=== PATIENT | male | born 1995 | race American Indian/Alaskan Native ===

== ENCOUNTER 2018-09-21 02:39 | Emergency (ER) | payer OTHER ==
[2018-09-21 02:48] VITALS: BP 116/67
[2018-09-21 03:24] LABS: Bacteria,Urine 1+ /HPF (Negative); Bilirubin,Urine NEG (Negative); Blood,Urine NEG (Negative); Color,Urine Amber (Yellow); Mucus,Urine FEW /HPF; Sperm,Urine FEW /HPF (NP)
[2018-09-21] MEDS ORDERED: XYLOCAINE 1% MPF 5 mL INFILTRATI ONE (04:46)
[2018-09-21] MEDS ORDERED: ROCEPHIN IM ONE (04:46)
[2018-09-21] MEDS ORDERED: ZITHROMAX PO ONE ×2 (04:46→05:12)
[2018-09-21] MEDS ORDERED: ZITHROMAX ONE (04:52)
--- NOTE | 2018-09-21 04:52 | Emergency Department Report ---
ED Male HPI - General Chief complaint: Urogenital-Male Stated complaint: GENITAL PAIN Time Seen by Provider: 09/21/18 03:43 Source: patient Mode of arrival: Ambulatory Limitations: No Limitations - History of Present Illness Initial comments: pt is a 22 y/o aam who presents for dysuria frequency urgency x 3 days states last contact was 4 days ago there is no fever no chills no n/v no penile discharge , Complaint: penile discharge, dysuria Onset/Timin -: days(s) Location: penis Radiation: none Severity: moderate Severity scale (0 -10): 4 Quality: burning Consistency: intermittent Improves with: none Worsens with: urination denies: discharge, swelling, mass, rash, urinary retention, blood in urine, dysuria, fever, nausea/vomiting, incontinence, other - Related Data Sexually active: Yes Previous Rx's Medication Instructions Recorded Last Taken Type Doxycycline Monohydrate 100 mg PO BID #30 capsule 09/21/18 Unknown Rx [Doxycycline Monohydrate CAP] Allergies Allergy/AdvReac Type Severity Reaction Status Date / Time No Known Allergies Allergy Unverified 09/21/18 02:50 ED Review of Systems ROS: Stated complaint: GENITAL PAIN Other details as noted in HPI Constitutional: denies: chills, fever Eyes: denies: eye pain, eye discharge, vision change ENT: denies: ear pain, throat pain Respiratory: denies: cough, shortness of breath, wheezing Cardiovascular: denies: chest pain, palpitations Endocrine: no symptoms reported Gastrointestinal: denies: abdominal pain, nausea, vomiting, diarrhea, constipation, melena Genitourinary: urgency, dysuria Musculoskeletal: back pain. denies: joint swelling, arthralgia, myalgia Skin: denies: rash, lesions Neurological: denies: headache, weakness, paresthesias Psychiatric: denies: anxiety, depression Hematological/Lymphatic: denies: easy bleeding, easy bruising ED Past Medical Hx - Past Medical History Previous Medical History?: No - Surgical History Past Surgical History?: No - Social History Smoking Status: Former Smoker Substance Use Type: Alcohol - Medications Home Medications: Home Medications Medication Instructions Recorded Confirmed Last Taken Type Doxycycline Monohydrate 100 mg PO BID #30 capsule 09/21/18 Unknown Rx [Doxycycline Monohydrate CAP] ED Physical Exam - General Limitations: No Limitations, Altered Mental Status General appearance: alert, in no apparent distress - Head Head exam: Present: atraumatic, normocephalic - Eye Eye exam: Present: normal appearance, PERRL, EOMI Pupils: Present: normal accommodation - ENT ENT exam: Present: normal orophraynx, mucous membranes moist - Neck Neck exam: Present: normal inspection, full ROM. Absent: tenderness, meningismus, lymphadenopathy, thyromegaly - Respiratory Respiratory exam: Present: normal lung sounds bilaterally. Absent: respiratory distress, wheezes, rhonchi, chest wall tenderness - Cardiovascular Cardiovascular Exam: Present: regular rate, normal rhythm. Absent: systolic murmur, diastolic murmur, rubs, gallop - GI/Abdominal GI/Abdominal exam: Present: hypoactive bowel sounds, organomegaly. Absent: distended, tenderness - Rectal Rectal exam: Present: deferred - Extremities Exam Extremities exam: Present: normal inspection - Back Exam Back exam: Present: normal inspection, rash noted. Absent: full ROM, tenderness, CVA tenderness (R), CVA tenderness (L), muscle spasm, paraspinal tenderness - Neurological Exam Neurological exam: Present: alert, oriented X3 - Psychiatric Psychiatric exam: Present: normal affect, normal mood - Skin Skin exam: Present: warm, dry, intact, normal color. Absent: rash ED Course Vital Signs 09/21/18 02:47 Temperature 98.7 F Pulse Rate 78 Respiratory 18 Rate Blood Pressure 116/67 [Left] O2 Sat by Pulse 100 Oximetry Critical care attestation.: If time is entered above; I have spent that time in minutes in the direct care of this critically ill patient, excluding procedure time. ED Disposition Clinical Impression: Dysuria UTI (urinary tract infection) Qualifiers: Urinary tract infection type: acute cystitis Hematuria presence: without hematuria Qualified Code(s): N30.00 - Acute cystitis without hematuria Disposition: - TO HOME OR SELFCARE Is pt being admited?: No Does the pt Need Aspirin: No Condition: Stable Instructions: Dysuria (ED), Urinary Tract Infection in Men (ED) Prescriptions: Doxycycline Monohydrate [Doxycycline Monohydrate CAP] 100 mg PO BID #30 capsule Referrals: [facility] [Outside] - 3-5 Days Forms: Work/School Release Form(ED) Time of Disposition: 05:03
== END 2018-09-21 05:25 | disposition home or self-care (01) ==
LOC: ED 02:39
DX: N30.00 Acute cystitis without hematuria (principal); Z87.891 Personal history of nicotine dependence
CPT/HCPCS: 81001; 96372; 99283; J0696

== ENCOUNTER 2020-02-04 16:58 | Emergency (ER) | payer OTHER ==
--- NOTE | 2020-02-04 18:46 | Emergency Department Report ---
- General Chief Complaint: Upper Respiratory Infection Stated Complaint: CHEST PAIN, HURTS TO BREATHE Time Seen by Provider: 02/04/20 18:42 Source: patient Mode of arrival: Ambulatory Limitations: No Limitations - History of Present Illness Initial Comments: 24-year-old F [place] male presents emerged department complaining of chest pain and shortness of breath for the past few days after discovering he was Covid positive today. Ports no hemoptysis no hematemesis no hematochezia, no fever, chills or sweats but symptoms he feels has been worsening. MD Complaint: cough Severity: mild Quality: dull Consistency: constant Worsens With: nothing Context: sick contacts Associated Symptoms: chills, rhinorrhea, cough. denies: shortness of breath, abdominal pain, vomiting, right sweats, weight loss, epistaxis - Related Data Previous Rx's Medication Instructions Recorded Last Taken Type Doxycycline Monohydrate 100 mg PO BID #30 capsule 09/21/18 Unknown Rx [Doxycycline Monohydrate CAP] Albuterol Mdi (or & Nicu Only) 1 puff IH Q4-6H PRN #1 inha 02/04/20 Unknown Rx [ProAir HFA Inhaler] Benzonatate [Tessalon Perles] 100 mg PO Q8HR #20 capsule 02/04/20 Unknown Rx predniSONE [Deltasone] 50 mg PO QDAY #5 tab 02/04/20 Unknown Rx Allergies Allergy/AdvReac Type Severity Reaction Status Date / Time No Known Allergies Allergy Unverified 09/21/18 02:50 ED Review of Systems ROS: Stated complaint: CHEST PAIN, HURTS TO BREATHE Other details as noted in HPI Comment: All other systems reviewed and negative ED Past Medical Hx - Past Medical History Previous Medical History?: No - Surgical History Past Surgical History?: No - Social History Smoking Status: Never Smoker Substance Use Type: None - Medications Home Medications: Home Medications Medication Instructions Recorded Confirmed Last Taken Type Doxycycline Monohydrate 100 mg PO BID #30 capsule 09/21/18 Unknown Rx [Doxycycline Monohydrate CAP] Albuterol Mdi (or & Nicu Only) 1 puff IH Q4-6H PRN #1 inha 02/04/20 Unknown Rx [ProAir HFA Inhaler] Benzonatate [Tessalon Perles] 100 mg PO Q8HR #20 capsule 02/04/20 Unknown Rx predniSONE [Deltasone] 50 mg PO QDAY #5 tab 02/04/20 Unknown Rx ED Physical Exam - General Limitations: No Limitations General appearance: alert, in no apparent distress - Head Head exam: Present: atraumatic, normocephalic - Eye Eye exam: Present: normal appearance, PERRL Pupils: Present: normal accommodation - ENT ENT exam: Present: normal exam, mucous membranes moist - Neck Neck exam: Present: normal inspection - Respiratory Respiratory exam: Present: normal lung sounds bilaterally. Absent: respiratory distress, wheezes, rales, chest wall tenderness, accessory muscle use, decreased breath sounds, prolonged expiratory - Cardiovascular Cardiovascular Exam: Present: regular rate, normal rhythm. Absent: systolic murmur, diastolic murmur, rubs, gallop - GI/Abdominal GI/Abdominal exam: Present: soft, normal bowel sounds - Rectal Rectal exam: Present: deferred - Extremities Exam Extremities exam: Present: normal inspection - Back Exam Back exam: Present: normal inspection - Neurological Exam Neurological exam: Present: alert, oriented X3 - Psychiatric Psychiatric exam: Present: normal affect, normal mood - Skin Skin exam: Present: warm, dry, intact, normal color. Absent: rash ED Course Vital Signs 02/04/20 17:31 Temperature 98.4 F Pulse Rate 68 Respiratory 20 Rate Blood Pressure 133/69 [Right] O2 Sat by Pulse 100 Oximetry ED Medical Decision Making - Radiology Data Radiology results: report reviewed Print Report Referring Physician:YAMIL WESTPatient Name:RADHA FLORPatient ID:[id number] of :[id number]:MaleAccession:[id number] Date:[id number] Status:Finalized Findings [address] [address] XRay Report Signed Patient: RADHA FLOR JR MR#: [id number] : 1995 Acct:[id number] Age/Sex: 24 / M ADM Date: 02/04/20 Loc: ED Attending Dr: Ordering Physician: OMAR LEMUS Date of Service: 02/04/20 Procedure(s): XR chest routine 2V Accession Number(s): [id number] cc: OMAR LEMUS Fluoro Time In Minutes: CHEST 2 VIEWS INDICATION: chest pain and covid+. COMPARISON: None FINDINGS: Support devices: None. Heart: Within normal limits. Lungs: No acute air space or interstitial disease. Pleura: No significant pleural effusion. No pneumothorax. Additional findings: None. IMPRESSION: 1. No acute findings. Signer Name: Mustapha Bhardwaj MD Signed: 02/04/2020 7:46 PM Workstation Name: [id number] Transcribed By: WG Dictated By: Mustapha Bhardwaj MD Electronically Authenticated By: Mustapha Bhardwaj MD Signed Date/Time: 02/04/201945 DD/ 45 TD/TT: - Medical Decision Making This patient presents to the emergency department with fever and lower respiratory symptoms concerning for viral syndrome including flu and COVID-19. Patient has suspicion and is for COVID-19 infection. Differential diagnosis includes other viral causes of lower respiratory symptoms, pneumonia, asthma, bronchitis. Patient is well-appearing with acceptable vitals, lacks comorbidities admission and a reassuring physical examination and is safe to be discharged home nasal swab for COVID testing was completed a couple days ago and he reports that it was positive. Provide strict return precautions and instructions on self isolation/quarantine and anticipatory guidance. Please adhere to the patient instructions as we discussed although currently your symptoms are not consistent with an overt assessment of COVID-19 this could change within the next few days. Please return to the emergency department should you experience any coughing up blood, shortness of breath, severe fever, chest pain, or any suggestion that your condition is worsening. Your chest x- ray was normal your vital signs were stable with a slight elevation in your heart rate at 106 please make sure to hydrate well and take the antipyretics for your temperature increased on your antioxidant vitamins Critical care attestation.: If time is entered above; I have spent that time in minutes in the direct care of this critically ill patient, excluding procedure time. ED Disposition Clinical Impression: Cough Disposition: DC-01 TO HOME OR SELFCARE Is pt being admited?: No Does the pt Need Aspirin: No Condition: Stable Instructions: Cool Mist Vaporizer, COVID-19 Frequently Asked Questions, COVID- 19, COVID-19: How to Protect Yourself and Others - [facility], Prevent the Spread of COVID-19 if You Are Sick - [facility] Additional Instructions: your chest xray was normal Prescriptions: predniSONE [Deltasone] 50 mg PO QDAY #5 tab Albuterol Mdi (or & Nicu Only) [ProAir HFA Inhaler] 1 puff IH Q4-6H PRN #1 inha PRN Reason: Cough Benzonatate [Tessalon Perles] 100 mg PO Q8HR #20 capsule Referrals: PRIMARY CARE, [Primary Care Provider] - 3-5 Days [facility] [Provider Group] - 3-5 Days
--- NOTE | 2020-02-04 19:51 | XRay Report ---
CHEST 2 VIEWS INDICATION: chest pain and covid+. COMPARISON: None FINDINGS: Support devices: None. Heart: Within normal limits. Lungs: No acute air space or interstitial disease. Pleura: No significant pleural effusion. No pneumothorax. Additional findings: None. IMPRESSION: 1. No acute findings. Signer Name: Mustapha Bhardwaj MD Signed: 02/04/2020 7:46 PM Workstation Name: [id number]
[2020-02-04 22:57] VITALS: BP 125/79
== END 2020-02-04 22:57 | disposition home or self-care (01) ==
LOC: ED 16:58
DX: R05 Cough (principal); Z79.899 Other long term (current) drug therapy
CPT/HCPCS: 71046